=== PATIENT | female | born 1990 | race Caucasian/White ===

== ENCOUNTER 2017-04-13 21:14 | Emergency (ER) | payer MEDICAID ==
[2017-04-13 21:15] VITALS: BMI 27.2
[2017-04-13 22:00] VITALS: RESP 20; O2SAT 100
[2017-04-13] MEDS ORDERED: Bacitracin 500 Units/gm Oint Foilpak UD TOP ONE (22:29)
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
[2017-04-13 23:47] VITALS: BP 110/69; PULSE 92; TEMP 98
--- NOTE | 2017-04-14 08:47 | RAD ---
Chest and right ribs three views History: Trauma. Comparison: None available. Findings: No focal infiltrate or effusion. Heart size within normal limits. No evidence of acute displaced fracture. Impression: Negative acute. If pain persists, consider chest CT.
== END 2017-04-13 23:47 | disposition home or self-care (01) ==
LOC: C.ER 21:14
DX: T14.8XXA Other injury of unspecified body region, initial encounter (principal); Y04.0XXA Assault by unarmed brawl or fight, initial encounter